=== PATIENT | female | born 1995 | race Caucasian/White ===

== ENCOUNTER 2022-07-17 13:52 | Outpatient (CLI) | payer OTHER, SELFPAY ==
--- NOTE | 2022-07-17 14:00 | CRLHL7_ITS ---
For Patients: As a result of the Century Cures Act, medical imaging exams and procedure reports are released immediately into your electronic medical record. You may view this report before your referring provider. If you have questions, please contact your health care provider. INDICATION: Evaluate anatomy. COMPARISON: 04/23/2022 TECHNIQUE: Real time donovan scale imaging of the fetus was performed as well as color Doppler analysis of the umbilical vessels. FINDINGS: Sonographic imaging demonstrates a single living intrauterine gestation. Fetus demonstrates a regular cardiac rate of 159 beats per minute. Fetus has a vertex position. The placenta lies anteriorly with evidence of placenta previa as the edge of the placenta overlies the internal cervical os. Amniotic fluid volume appears normal. Single deepest vertical pocket: 5.1 cm. The cervix is closed and measures 4.1 cm in length. The composite ultrasound gestational age is calculated at 29 weeks 1 day with an estimated sonographic due date of 11/26/2022. The estimated weight is 401 grams which lies at the 92nd %. The following biometric measurements were obtained: Biparietal diameter: 5.1 cm/21 weeks 2 days 90th% Head circumference: 18.5 cm/20 weeks 6 days 74th% Abdominal circumference: 15.4 cm/20 weeks 4 days 58th% Femur length: 3.7 cm/21 week 6 days 91st% The HC/AC ratio measures: 1.20 range (1.06-1.25) On anatomic survey, there is a normal appearance of the cerebral ventricles, cavum septi pellucidi, cisterna magna and cerebellum. The nose, lips, and facial profile appear normal. The cervical, thoracic and lumbar spine are not well visualized due to position. There is a normal four-chamber heart view and the left and right ventricular outflow tracts appear normal. The diaphragm and stomach appear normal. The kidneys and bladder also appear normal. There is a normal three-vessel cord and cord insertion site. The four extremities appear normal. IMPRESSION: The anterior placenta edge covers the internal cervical os consistent with previa. Normal anatomic survey with the exception of incomplete visualization of the spine. Short-term follow-up is recommended. Sonographic gestational age 21 weeks 1 day and sonographic due date 11/26/2022. Sonographic age is 1 week ahead of the clinical age. Estimated weight 92nd percentile. Abdominal circumference 58th percentile. Dictated by Alexander Wagner MD @ 07/17/2022 3:30:07 PM (Electronically Signed)
== END 2022-07-17 13:53 | disposition home or self-care (01) ==
LOC: US 13:52
PROVIDERS: Visit Provider Obstetrics & Gynecology
DX: Z34.92 Encounter for supervision of normal pregnancy, unspecified, second trimester (principal); Z3A.21 21 weeks gestation of pregnancy
CPT/HCPCS: 76805; 76817

== ENCOUNTER 2022-08-01 12:52 | Outpatient (CLI) | payer OTHER, SELFPAY ==
--- NOTE | 2022-08-01 13:00 | CRLHL7_ITS ---
For Patients: As a result of the Century Cures Act, medical imaging exams and procedure reports are released immediately into your electronic medical record. You may view this report before your referring provider. If you have questions, please contact your health care provider. INDICATION: Follow-up spine and placenta COMPARISON: 07/17/2022 TECHNIQUE: Real time donovan scale imaging of the fetus was performed. FINDINGS: Sonographic imaging demonstrates a single living intrauterine gestation. Fetus demonstrates a regular cardiac rate of 167 beats per minute. Fetus has a breech position. The placenta lies anterior without evidence of placenta previa. The edge of the placenta is 7.3 cm from the internal cervical os. Amniotic fluid volume appears normal. Single deepest vertical pocket: 5.1 cm. The cervical, thoracic and lumbar spine are well visualized and appear normal. IMPRESSION: Normal spine. No previa. Dictated by Alexander Wagner MD @ 08/01/2022 2:23:09 PM (Electronically Signed)
== END 2022-08-01 12:53 | disposition home or self-care (01) ==
LOC: US 12:53
PROVIDERS: Visit Provider Obstetrics & Gynecology
DX: O44.00 Complete placenta previa NOS or without hemorrhage, unspecified trimester (principal); Z3A.22 22 weeks gestation of pregnancy
CPT/HCPCS: 76815; 76817

== ENCOUNTER 2022-09-11 12:40 | Outpatient (CLI) | payer OTHER, SELFPAY ==
--- OUTSIDE RECORDS SUMMARY | 2022-09-11 07:58 | XMS_ITS ---
:1995 Author Care Team Providers Name Role Phone Lissy Glover Primary Care Provider Unavailable Allergies Code Code System Name Reaction Severity Status Onset 739328 RxNorm Amoxicillin ? ? Active ? Medications Name Status Start Date Stop Date ? ? doxycycline monohydrate 100 mg capsule Completed ? 08/15/2020 fluticasone propionate 50 mcg/actuation nasal Completed ? 08/15/2020 spray,suspension Active ? Not available Problems None recorded. Procedures Date Name Performed by ? ? Remove Intrauterine Device Information n ot available Notes: *Surgery Date: 01/08/18 ? Insert Intrauterine Device Information n ot available Notes: *Surgery Date: 03/11/17 *Notes: Kyleena insertion Notes: 07/03/2020: *Procedure Name: An kle repair Results Lab Results Date Name Specimen Result Interpretation Description Value Range Status Address ? 09/04/2020 Choriogonadotropin, High HCG 70 <=3 Kayley Simons QL, Serum or Plasma Total, mIU/mL mIU/mL [facility] - Lab: [address], [place] 09/04/2020 Progesterone, Serum ? Progest 16.7 ? Complete Ronak erone, NG/mL [facility] - Lab: [address], [place] 08/31/2020 Progesterone, Serum ? Progest 6.7 ? Complete Ronak erone, NG/mL [facility] - Lab: [address], [place] 08/15/2020 Prolactin, Serum ? Prolact 6.5 ? C omplete Ronak in, NG/mL [facility] - Lab: [address], [place] 08/15/2020 Hemoglobin a1C + ? HbA1C 5.2 % <5.7 % Com clara Simons Average Glucose, QN, (Glycoso [facility] Blood [facility] - HGB) Lab: [address], [place] ? ? ? EAG 103 <117 Kayley Simons (Est. mg/dL mg/dL [facility] - Glucose) Lab: [address], [place] Past Encounters None recorded. Social History Tobacco Smoking Status Never Smoker Notes: Tobacco *Status: Never *Note: 06/08/2019 - Vaccine List None recorded. Plan of Care Reminders Provider Appointments None recorded. ? ? Lab None recorded. ? ? Referral None recorded. ? ? Procedures None recorded. ? ? Surgeries None recorded. ? ? Imaging None recorded. ? ? Vitals 08/15/2020 02:45PM G_CONSULT Height Weight BMI Blood Pressure 5 ft 4 in 156 lbs 26.8 kg/m2 100/72 mm[Hg] 09/15/2019 Height Weight BMI Blood Pressure 5 ft 3.96 in 151.13 lbs 25.94 kg/m2 120/82 mm[Hg] 06/08/2019 Height Weight BMI Blood Pressure 5 ft 3.96 in 151.13 lbs 25.94 kg/m2 108/78 mm[Hg] 01/08/2018 Height Weight BMI Blood Pressure 5 ft 3.96 in 137 lbs 23.52 kg/m2 122/72 mm[Hg] 12/30/2017 Height Weight BMI Blood Pressure 5 ft 3.96 in 137 lbs 23.52 kg/m2 110/70 mm[Hg] 04/15/2017 Height Weight BMI Blood Pressure 5 ft 3.96 in 144 lbs 24.72 kg/m2 104/62 mm[Hg] 03/11/2017 Height Weight BMI Blood Pressure 5 ft 3.96 in 144 lbs 24.72 kg/m2 130/74 mm[Hg] 03/07/2017 Height Weight BMI Blood Pressure 5 ft 3.96 in 148 lbs 25.40 kg/m2 122/76 mm[Hg] 01/27/2017 Height Weight BMI Blood Pressure 5 ft 3.96 in 148 lbs 25.40 kg/m2 120/70 mm[Hg] 05/10/2016 Height Weight BMI Blood Pressure 5 ft 3.96 in 145 lbs 24.89 kg/m2 122/70 mm[Hg] 07/07/2015 Height Weight BMI Blood Pressure 5 ft 3.96 in 142.63 lbs 24.48 kg/m2 102/68 mm[Hg] 05/09/2015 Height Weight BMI Blood Pressure 5 ft 3.96 in 116.75 lbs 20.04 kg/m2 112/76 mm[Hg] 02/23/2014 Height Weight BMI Blood Pressure 5 ft 3.96 in 139 lbs 23.86 kg/m2 112/70 mm[Hg] 02/22/2013 Height Weight BMI Blood Pressure 5 ft 3.96 in 145 lbs 24.89 kg/m2 104/60 mm[Hg] 07/14/2012 Height Weight BMI Blood Pressure 5 ft 3.96 in 139 lbs 23.86 kg/m2 10/70 mm[Hg] 12/02/2011 Height Weight BMI Blood Pressure 5 ft 3.96 in 142.5 lbs 24.46 kg/m2 108/72 mm[Hg] 09/02/2011 Height Weight BMI Blood Pressure 5 ft 3.96 in 139 lbs 23.86 kg/m2 110/66 mm[Hg] 10/01/2010 Height Weight BMI Blood Pressure 5 ft 3.96 in 126 lbs 21.63 kg/m2 112/70 mm[Hg]
[2022-09-13 00:52] LABS: Rapid Plasma Reagin (RPR) Non Reactive (Non Reactive)
[2022-09-13 03:55] LABS: Varicella-Zoster Virus Ab, IgG 74.1 IV
== END 2022-09-11 12:41 | disposition home or self-care (01) ==
PROVIDERS: Visit Provider Obstetrics & Gynecology
DX: Z34.93 Encounter for supervision of normal pregnancy, unspecified, third trimester (principal); Z3A.28 28 weeks gestation of pregnancy
CPT/HCPCS: 86592; 86787

== ENCOUNTER 2022-11-04 12:51 | Outpatient (CLI) | payer OTHER, SELFPAY ==
--- NOTE | 2022-11-04 13:00 | CRLHL7_ITS ---
For Patients: As a result of the Century Cures Act, medical imaging exams and procedure reports are released immediately into your electronic medical record. You may view this report before your referring provider. If you have questions, please contact your health care provider. INDICATION: Third trimester scan, evaluate growth. COMPARISON: 08/01/2022 TECHNIQUE: Real time donovan scale imaging of the fetus was performed. FINDINGS: Sonographic imaging demonstrates a single living intrauterine gestation. Fetus demonstrates a regular cardiac rate of 152 beats per minute. Fetus has a vertex position. The placenta lies anteriorly. Amniotic fluid volume appears normal and there is a single deepest vertical pocket: 4.7 cm. The estimated weight is 2457gm which lies at the 18th %. On the prior OB ultrasound exam dated 07/17/2022 the estimated weight was at the 92nd%. BPD 36th percentile. HC 46th percentile. AC 9th percentile. FL 23rd percentile. The HC/AC ratio measures 1.10 range (0.93-1.10). IMPRESSION: Sonographic gestational age 35 weeks 2 days and sonographic due date 12/07/2022. Sonographic age is 4 days behind the clinical age. Estimated weight 18th percentile. Abdominal circumference 9th percentile. Dictated by Alexander Wagner MD @ 11/05/2022 11:16:09 AM (Electronically Signed)
--- OUTSIDE RECORDS SUMMARY | 2022-11-04 13:14 | XMS_ITS ---
:1995 Author Care Team Providers Name Role Phone Lissy Glover Primary Care Provider Unavailable Allergies Code Code System Name Reaction Severity Status Onset 265497 RxNorm Amoxicillin ? ? Active ? Medications [...] QL, Serum or Plasma Total, mIU/mL mIU/mL [facility] - Lab: [address], [place] 09/04/2020 Progesterone, Serum ? Progest 16.7 ? Complete Ronak erone, NG/mL [facility] - Lab: [address], [place] 08/31/2020 Progesterone, Serum ? Progest 6.7 ? Complete Ronak erone, NG/mL [facility] - Lab: [address], [place] 08/15/2020 Prolactin, Serum ? Prolact 6.5 ? C omplete Ronak in, NG/mL [facility] - Lab: [address], [place] 08/15/2020 Hemoglobin a1C + ? HbA1C 5.2 % <5.7 % Com clara Simons Average Glucose, QN, (Glycoso [facility] Blood [facility] - HGB) Lab: [address], [place] ? ? ? EAG 103 <117 Kayley Simons (Est. mg/dL mg/dL [facility] - Glucose) Lab: [address] [...]
== END 2022-11-04 12:52 | disposition home or self-care (01) ==
PROVIDERS: Visit Provider Obstetrics & Gynecology
DX: Z34.93 Encounter for supervision of normal pregnancy, unspecified, third trimester (principal); Z98.891 History of uterine scar from previous surgery; Z3A.35 35 weeks gestation of pregnancy
CPT/HCPCS: 76816

== ENCOUNTER 2022-11-04 14:25 | Outpatient (CLI) | payer OTHER, SELFPAY ==
--- OUTSIDE RECORDS SUMMARY | 2022-11-04 14:43 | XMS_ITS ---
:1995 Author Care Team Providers Name Role Phone Lissy Glover Primary Care Provider Unavailable Allergies Code Code System Name Reaction Severity Status Onset 786404 RxNorm Amoxicillin ? ? Active ? Medications [...] QL, Serum or Plasma Total, mIU/mL mIU/mL [facility] - Lab: [address], [place] 09/04/2020 Progesterone, Serum ? Progest 16.7 ? Complete Ronak erone, NG/mL [facility] - Lab: [address], [place] 08/31/2020 Progesterone, Serum ? Progest 6.7 ? Complete Ronak erone, NG/mL [facility] - Lab: [address], [place] 08/15/2020 Prolactin, Serum ? Prolact 6.5 ? C omplete Ronak in, NG/mL [facility] - Lab: [address], [place] 08/15/2020 Hemoglobin a1C + ? HbA1C 5.2 % <5.7 % Com clara Simons Average Glucose, QN, (Glycoso [facility] Blood [facility] - HGB) Lab: [address], [place] ? ? ? EAG 103 <117 Kayley Simons (Est. mg/dL mg/dL [facility] - Glucose) Lab: [address] [...]
[2022-11-05 14:03] LABS: Strep B DNA Probe POSITIVE (Negative)
[2022-11-05 14:07] LABS: Strep B Pen/Amox Allergy Yes
== END 2022-11-04 14:26 | disposition home or self-care (01) ==
LOC: NFLDREF 14:27
PROVIDERS: Visit Provider Obstetrics & Gynecology
DX: Z34.93 Encounter for supervision of normal pregnancy, unspecified, third trimester (principal); Z88.0 Allergy status to penicillin; Z3A.35 35 weeks gestation of pregnancy
CPT/HCPCS: 87081; 87186; 87653

== ENCOUNTER 2022-11-28 01:21 | Inpatient (IN) | payer OTHER, SELFPAY ==
[2022-11-28] VITALS (49 sets, daily range): BP systolic 113–151; BP diastolic 56–87; PULSE 68–114; RESP 16–18; TEMP 36.6–37.2; O2SAT 94–99; BMI 37.3
[2022-11-28] MEDS: LACTATED RINGERS 1000 ML 1,000 ML 1200 ML IV ×3 (01:36→04:43)
[2022-11-28] MEDS: CEFAZOLIN 2 GM in 0.9 % SODIUM CHLORIDE Mini-bag 100 ML IVPB (01:37)
[2022-11-28 02:04] LABS: Basophils Absolute Auto 0.02 K/uL (0.00-0.30); Basophils Percent Auto 0.2 % (0.0-3.0); Eosinophils Absolute Auto 0.06 K/uL (0.00-0.50); Eosinophils Percent Auto 0.6 % (0.0-7.0); Hematocrit 36.2 % (33.0-51.0); Hemoglobin* 11.9 gm/dL (12.0-16.0); Immature Granulocytes Abs Auto 0.05 K/uL (0.00-0.30); Immature Granulocytes Pct Auto 0.5 %; Lymphocytes Percent Auto 17.5 % (20-44); Mean Corpuscular HGB Conc 33 gm/dL (32-36); Mean Corpuscular Hemoglobin 28 pg (26-34); Mean Corpuscular Volume 85 fL (80-100); Monocytes Percent Auto 5.3 % (0.0-11.0); Neutrophils Percent Auto 75.9 % (42.0-72.0); Platelet Count* 344 K/uL (140-440); RDW Coefficient of Variation % 15.5 % (11.5-15.5); Red Blood Count 4.27 m/uL (4.00-5.20); White Blood Count* 10.04 K/uL (4.50-11.00)
[2022-11-28 02:12] LABS: Slide Review Reflex No
--- NOTE | 2022-11-28 02:22 | P.LDBA_ITS ---
Subjective History of Present Illness Time Seen by Provider: 02:22 Date Seen: 11/28/22 Narrative: Patient is being admitted to Labor and Delivery for spontaneous onset of labor. She is a 27 year old at 39 2/7 weeks gestation. Her full history and physical was dictated by Dr. Butt on 11/13/2022. Please see this for details. She began experiencing strong uterine contractions at approximately 10:40 pm om 11/27/2022. Initially, upon arrival, her cervix was unchanged from exam in clinic on 11/27/2022: 3/50/-2, and she was shane every 2.5-5 minutes, lasting 40- 60 seconds. Over the course of an hour of observation, the contractions became more frequent and she had documented cervical change. OB Problem List: Blood type:B positive 1. History of c/s for breech presentation * Desires * Consent form given at 1st OB. Signed: 09/26/2022 * Growth ultrasound @36 weeks: Scheduled 2. Amoxicillin allergy * NEEDS sensitivities with GBS swab if positive * Sensitive to Cephalosporins and Vancomycin * Prophylaxis with Ancef in labor. 3. Hx of PUPPPs w/ previous 4. Rubella equivocal. * Recommend MMR Pap DUE OB - H&P: Exam Physical Exam: Vital signs: Pulse BP Pulse Ox 88 129/73 98 11/28/22 00:06 11/28/22 00:06 11/28/22 02:21 Constitutional: Constitutional: no acute distress Routine HEENT Exam: Head: Present normal inspection Detailed Labor and Delivery Exam: Patient Gravid: yes Dilation (cm): 4 Effacement (%): 60 Contraction frequency (min): 2 Contraction duration (sec): 60 Contraction intensity: Strong/Firm Fetus (Single): Station: -2 Heart Rate Baseline: 150 Monitor Accelerations: Present Monitor Decelerations: None Senior Living Variability: Moderate (6-25) Routine Neurological Exam: Present alert and oriented X3 Routine Psychiatric Exam: Present normal affect OB - Problem Based A/P Additional Plan (1) Spontaneous onset of labor: Status: Acute (2) Patient desires vaginal after section (): Status: Acute Plan Epidural prn. Ancef for GBS prophylaxis, 2 g initially, then 1 g q8 hours until delivered. Delivery/Labor/Induction Plan Plan: expectant management
[2022-11-28] MEDS: LIDOCAINE 2% (PF) 5 ML VIAL EPIDURAL (02:43)
[2022-11-28] MEDS: ROPIVACAINE 0.2% 100 ml 100 ML 12 MG EPIDURAL (02:47)
[2022-11-28 02:53] LABS: SARS PCR* Negative SARS-CoV-2 (Negative)
--- NOTE | 2022-11-28 03:00 | P.ANBPRC_ITS ---
[facility] Surgical History (Updated 11/28/22 @ 02:31 by Mariely Butt MD) H/O wisdom tooth extraction (~2015) History of ankle surgery (~2008) Status post primary low transverse section (05/13/21) Family History (Updated 06/19/22 @ 16:56 by Mariely Butt MD) Brother Diabetes Paternal Grandmother Breast cancer Brother Crohn's disease Social History Smoking Status: Never smoker Meds Home Medications and Allergies Home Medications Medication Instructions Recorded Confirmed Type 103-folic acid 400 tab PO QDAY 06/19/22 11/27/22 History mcg-omeg3 32.5 mg-dha-fish oil chew tablet ( with DHA and Folic Acid) ferrous sulfate 325 mg (65 mg 325 mg PO QDAY 11/27/22 11/28/22 History iron) tablet Allergies Allergy/AdvReac Type Severity Reaction Status Date / Time amoxicillin Allergy Intermediate Rash Verified 11/27/22 15:04 dairy AdvReac Intermediate GI upset Uncoded 11/27/22 15:04 Results Labs Labs: Laboratory Results - last 24 hr 11/28/22 11/28/22 11/28/22 01:30 01:30 01:39 WBC 10.04 RBC 4.27 Hgb 11.9 L Hct 36.2 MCV 85 MCH 28 MCHC 33 RDW Coeff of Jarod 15.5 Plt Count 344 Neut % (Auto) 75.9 H Lymph % (Auto) 17.5 L Linn % (Auto) 5.3 Eos % (Auto) 0.6 Baso % (Auto) 0.2 Neut # (Auto) 7.60 H Lymph # (Auto) 1.80 Linn # (Auto) 0.50 Eos # (Auto) 0.06 Baso # (Auto) 0.02 SARS-CoV-2 (PCR) Negative SARS-CoV-2 Blood Type B Positive Antibody Screen NEGATIVE Vital Signs Vital Signs: Last Vital Signs Pulse 83 11/28/22 02:59 BP 129/78 11/28/22 02:59 Pulse Ox 98 11/28/22 02:56 Weight: 98.611 kg Height: 162.56 cm Anesthesia Procedures Epidural Insertion Patient Location: OB Start Time: 02:00 Stop Time: 03:00 Start Date: 11/28/22 Stop Date: 11/28/22 Reason for Block: procedure for pain Patient Position: sitting Performed By: Lisa Ervin Preanesthetic Checklist: IV checked, risks and benefits discussed, monitors and equipment checked, pre-op evaluation, timeout performed and anesthesia consent Prep: chlorhexidine gluconate Monitoring: blood pressure monitoring, continuous pulse oximetry and heart rate Approach: midline Vertebral Space: lumbar (1-5) Epidural Technique: TERRENCE saline Needle Type: Tuohy needle Injection Technique: continuous catheter (continuous catheter) Needle gauge: 17 Needle Length (cm): 10 cm Needle Insertion Depth (cm): 9 Catheter Gauge: 19 Catheter Type: multi-orifice Catheter at skin depth (cm): 18 Test Dose Result: negative and lidocaine 1.5% with epinephrine 1 to 200,000
[2022-11-28] MEDS: fentaNYL 100 MCG/2 ML inj EPIDURAL (03:11)
[2022-11-28] MEDS: LIDOCAINE 1% MDV 20 ML INJECTION (05:34)
[2022-11-28] MEDS: OXYTOCIN 30 unit/500 ML in NS 30 UNIT/500 ML BAG 300 UNIT IVPB (05:39)
--- NOTE | 2022-11-28 06:31 | P.OBPRC_ITS ---
Procedure Delivery date: 11/28/22 Procedure Done: Global Events: Previous Intrapartal Events: None Delivery augmentation: rupture of membranes Delivery monitor: external FHT and external uterine Route of delivery: Episiotomy description: Midline Laceration description: Vaginal - 2nd Degree (right vaginal sulcus) Delivery repair: Chromic (3-0) Estimated blood loss (mL): 325 Anesthesia type: Epidural Disposition: floor Complications: None Narrative: The patient is a 27 year-old admitted on 11/28/2022 at 39 Weeks, 2 Days gestation for spontaneous onset labor.? Cervical exam on admission was 4 cm/[] % effaced/60 station with membranes -2 in vertex presentation.? Contractions were every 2-4 minutes.? heart rate demonstrated baseline 150 bpm with moderate variability, + accelerations, - decelerations; a category 1 tracing.? Labor onset:? 0309 ? Labor Analgesia:? Epidural ? Pitocin:? No ? AROM occurred at 0500 with clear fluid. ? Complete:? 0505 ? Pushing:? 0509 ? heart tones during second stage were 120-140 baseline with good variability. ? At 0539 a viable male infant delivered in vertex OA presentation over second- degree midline episiotomy via spontaneous vaginal delivery.? Infant was placed on maternal abdomen.? Cord was clamped and cut after a 30-60 second delay.? Nose and mouth were bulb suctioned.? Infant weight pending.? 8 at 1 minute and 9 at 5 minutes.? Shoulder dystocia: No.? Nuchal cord: Yes, loose x1. ? Placenta delivered spontaneously and complete at 0545 with a 3 vessel cord. ? Mother and infant were stable after delivery. ? Lacerations:? Second-degree midline perineal and right secondary vaginal sulcus tear, repaired with 3-0 chromic. ? Blood loss: 325 mL. Blood loss measurement type: QBL ? Sponge and needles counts are correct. [place] Infant Gender: Male presentation: vertex Placental Delivery Description: Spontaneous Cord Description: 3 Vessels, Nuchal Cord (x1) and Loose total score - 1 minute: 8 total score - 5 minute: 9
[2022-11-28] MEDS: IBUPROFEN 600 MG TABLET PO ×3 (08:25→20:07)
[2022-11-28] MEDS: DOCUSATE SODIUM 100 MG CAPSULE PO (08:26)
[2022-11-29 00:46] VITALS: BP 113/72; PULSE 66; RESP 16; TEMP 36.9; O2SAT 97
[2022-11-29 03:16] VITALS: BP 113/75; PULSE 70; TEMP 36.9; O2SAT 96
[2022-11-29] MEDS: IBUPROFEN 600 MG TABLET PO ×2 (03:29→09:57)
[2022-11-29 07:26] LABS: Hemoglobin* 9.4 gm/dL (12.0-16.0)
--- NOTE | 2022-11-29 08:05 | PM.OBDSVD1 ---
DS: Providers Provider Date Seen: 11/29/22 Date of admission: 11/28/22 01:21 Primary care physician: Not a Local Provider Admitting Clinician: Mariely Butt MD Attending Physician on discharge: Cleo Hopkins CNM & CANDACE Cristina DS: Diagnosis Discharge Diagnosis (1) care and examination immediately after delivery: Status: Acute (2) (vaginal after ): Status: Acute (3) Lactating mother: Status: Acute Problem details: Patient is planning to pump at this time. Currently formula feeding baby. (4) Anemia due to acute blood loss: Status: Acute Exam Const: Vital Signs, click to edit/add: Vital Signs - 24 hr 11/28/22 11:58 11/28/22 15:38 11/28/22 20:03 Temperature 98.4 F 97.8 F 98.7 F Pulse Rate [Right Pulse Oximeter] 90 84 83 Respiratory Rate 16 18 16 Blood Pressure [Ri ght Arm] 118/79 116/69 117/84 Pulse Oximetry 96 96 97 Oxygen Delivery Me thod Room Air Room Air Room Air 11/29/22 00:46 11/29/22 03:16 Temperature 98.4 F 98.5 F Pulse Rate [Right Pulse Oximeter] 66 70 Respiratory Rate 16 Blood Pressure [Ri ght Arm] 113/72 113/75 Pulse Oximetry 97 96 Oxygen Delivery Me thod Room Air Room Air Documenting provider has reviewed patient's vital signs: yes Common normals: no apparent distress, oriented x3, healthy appearing and alert HENMT: Common normals: normocephalic Head and scalp: normocephalic Eye: Common normals: PERRL Pupil: PERRL Neck & C-Spine: Common normals: full ROM and supple Chest: Common normals: inspection of chest normal Resp: Common normals: normal respiratory effort and clear to auscultation bilaterally Auscultation: clear to auscultation bilaterally Cardio: Common normals: regular rate and regular rhythm Rate: regular rate Rhythm: regular rhythm GI: Common normals: soft to palpation Palpation: soft : OB/external & speculum: Yes perineal/vaginal laceration Laceration: 2nd (well approximated) Uterus: U/1 Lochia: small Back & Pelvis: Common normals: thoracic and lumbar spine normal to inspection Extremity: Common normals: normal to inspection and full ROM Neuro: Common normals: oriented x3 Sensorium/orientation: alert Speech: speech normal Psych: Common normals: mental status grossly normal, thought process normal, speech normal and activity/motor behavior normal Speech: normal speech Thought process: normal thought process Skin: Common normals: no rashes or lesions noted General skin exam: no rashes or lesions noted OB - DS: Summary Hospital Course Hospital Course: The patient is a 27 year old at 39 3/7 weeks gestation that was admitted to the Center on 11/28/22 for spontaneous labor. She had an uncomplicated vaginal delivery. She delivered a viable male infant Mj. the patient has done well. The pain is well controlled with current medications.? She has no new complaints.? Urinary output is adequate and she is voiding without difficulty.? Has a good appetite, is tolerating a general diet, is passing flatus, and has not had a bowel movement.? Has small amount of rubra lochia.? She is ambulating well. She is and reports it is going well.? Peripartum Data Infant delivery method: Vaginal Laceration description: Perineal - 2nd Degree complications: none [place] Infant Gender: Male Discharge Plan: Home Status at Discharge Functional status at discharge: independent ambulation Overall status at discharge: patient is progressing back to baseline Time Spent with Patient Time attestation: Total time spent providing and/or coordinating discharge services: Discharge Plan Discharge Disposition: Home, Self-Care Date of Admission: 11/28/22 01:21 Attending Provider on Discharge: Cleo Hopkins Primary Care Provider: Provider,Not a Local Condition: Stable Anticipated Discharge Date/Time: 11/29/22 18:30 Discharge Medications: New acetaminophen 500 mg Tablet 1,000 mg PO Q6H PRNQty: 0 0RF docusate sodium 100 mg Capsule 100 mg PO DAILY Qty: 90 0RF ibuprofen 600 mg Tablet 600 mg PO Q6H PRNQty: 60 0RF Continued with DHA-Folic Acid 400-32.5 mcg-mg tablet,chewable PO QDAY ferrous sulfate 325 mg (65 mg iron) tablet 325 mg PO QDAY Qty: 90 0RF Discharge Orders: Discharge Order (Routine); Ordered 11/29/22 Ordered By: Cleo Hopkins Patient Education: Bleeding (GEN), OB Vaginal/Bottle Feeding Additional Instructions: Discharge instructions were reviewed with the patient including signs and symptoms of infection and home going medications. Activity restrictions: Nothing vaginally for 6 weeks: no tampons, intercourse or douche No lifting or exercise restrictions. Off Work or School for 6 weeks. Follow up Appointments with a [facility] provider: 2 week visit: Answer infant care concerns, screen for anxiety/depression, discuss control options. 6 week visit: Physical exam. consultation services are available to all mothers and babies for the first year after delivery.? To make an appointment, please call [phone]. Activity Level: Activity as Tolerated Discharge Diet: Regular Follow Up Appointments: [facility] [Provider Group] (2 week and 6 week visits) Forms: [employer] Info Instructions
[2022-11-29 09:35] VITALS: BP 112/73; PULSE 83; RESP 16; TEMP 37.1; O2SAT 96
[2022-11-29] MEDS: MEASLES,MUMPS,RUBELLA VACC/PF 1 DOSE INJ 1 EACH SUBCUT (09:48)
[2022-11-29] MEDS: DOCUSATE SODIUM 100 MG CAPSULE PO (09:48)
== END 2022-11-29 12:30 | disposition home or self-care (01) | DRG 806 ==
LOC: OB OUT 01:22 → OB 01:22
PROVIDERS: Admitting Provider Obstetrics & Gynecology; Visit Provider Obstetrics & Gynecology
DX: O34.211 Maternal care for low transverse scar from previous cesarean delivery (principal); D62 Acute posthemorrhagic anemia; O99.02 Anemia complicating childbirth; O70.1 Second degree perineal laceration during delivery; Z37.0 Single live birth; Z3A.39 39 weeks gestation of pregnancy
CPT/HCPCS: 01967; 36415; 85018; 85025; 86850; 86900; 86901; 87635; 99213; A9270; J0690; J2795; J3010; J7120